=== PATIENT | male | born 1960 | race Caucasian/White ===

== ENCOUNTER 2025-02-26 06:20 | Day surgery (SDC) | payer BC, SELFPAY | END 2025-02-26 16:19 | disposition home or self-care (01) | LOC: GI 06:20 | PROVIDERS: ATTENDING PHYSICIAN Internal Medicine Gastroenterology | DX: Z12.11 Encounter for screening for malignant neoplasm of colon (principal); K63.5 Polyp of colon; K57.30 Diverticulosis of large intestine without perforation or abscess without bleeding; K64.8 Other hemorrhoids; Z86.0101 Personal history of adenomatous and serrated colon polyps; Z79.01 Long term (current) use of anticoagulants | CPT/HCPCS: 45380; 88305 ==

== ENCOUNTER → 2025-03-06 13:50 | Outpatient (REF) | payer BC, SELFPAY | LOC: RAD 13:50 | PROVIDERS: ATTENDING PHYSICIAN Family Medicine | DX: R22.42 Localized swelling, mass and lump, left lower limb (principal) | CPT/HCPCS: 93971 ==

== ENCOUNTER → 2025-07-24 07:47 | Outpatient (REF) | payer BC, SELFPAY | LOC: EMG 07:47 | PROVIDERS: ATTENDING PHYSICIAN Psychiatry & Neurology Neurology; FAMILY PHYSICIAN Family Medicine | DX: R29.898 Other symptoms and signs involving the musculoskeletal system (principal); R20.0 Anesthesia of skin | CPT/HCPCS: 95886; 95909 ==

== ENCOUNTER 2025-09-26 06:26 | Day surgery (SDC) | payer BC, SELFPAY ==
[2025-09-16 11:30] LABS: Blood Urea Nitrogen 14 mg/dl (9-20); Calcium 9.5 mg/dl (8.4-10.2); Carbon Dioxide 27 mmol/L (22-30); Chloride 103 mmol/L (98-107); Glucose 104 mg/dl (70-99); Potassium 4.6 mmol/L (3.5-5.1); Sodium 138 mmol/L (135-145); eGFR > 60.00
[2025-09-16 14:11] VITALS: BMI 33.3
[2025-09-26] VITALS (10 sets, daily range): BP systolic 95–142; BP diastolic 55–89; BMI 33.3
[2025-09-26] MEDS: NORMOSOL-R/PLASMALYTE-A 1000 IV (07:35)
[2025-09-26] MEDS: TYLENOL 1000 MG PO (07:40)
[2025-09-26] MEDS: CELEBREX 200 MG PO (07:42)
[2025-09-26] MEDS: DILAUDID 0.5 MG IV (11:53)
== END 2025-09-26 14:04 | disposition home or self-care (01) ==
LOC: SDS 06:26
PROVIDERS: ATTENDING PHYSICIAN Orthopaedic Surgery; FAMILY PHYSICIAN Family Medicine
DX: S46.011A Strain of muscle(s) and tendon(s) of the rotator cuff of right shoulder, initial encounter (principal); X58.XXXA Exposure to other specified factors, initial encounter
CPT/HCPCS: 29827; 80048; 93005; C1713

== ENCOUNTER 2025-11-17 11:47 | Outpatient (RCR) | payer BC, SELFPAY | END 2025-11-17 23:59 | disposition home or self-care (01) | LOC: RPT 11:47 | PROVIDERS: ATTENDING PHYSICIAN Physician Assistant; FAMILY PHYSICIAN Family Medicine | DX: Z47.89 Encounter for other orthopedic aftercare (principal); Z98.890 Other specified postprocedural states (principal); Z73.6 Limitation of activities due to disability; M62.81 Muscle weakness (generalized); M25.511 Pain in right shoulder | CPT/HCPCS: 97010; 97110; 97112; 97140; 97163 ==